=== PATIENT | female | born 1965 | race African-American/Black ===

== ENCOUNTER 2020-08-11 11:52 | Inpatient (IN) | payer OTHER ==
[~2020-08-11] VITALS: Ht 152.4 cm; Wt 47.6 kg
--- NOTE | 2020-08-11 12:05 | NUR ---
[facility] from [facility] "Poor PO intake/pancreatic CA-mets/Hypotension". vs checked. iv access started. blood draw done sent to lab
--- NOTE | 2020-08-11 12:35 | NUR ---
urine collected sent to lab
[2020-08-11] MEDS ORDERED: IV NS 0.9% 1,000 ML BAG IV ONE ×2 (13:00→16:00)
[2020-08-11 13:06] LABS: BASOPHILS # (AUTO) 0.1 /CMM (0.0-0.2); BASOPHILS % (AUTO) 0.6 % (0.0-2.0); HEMATOCRIT 34 % (33-45); HEMOGLOBIN 10.9 g/dL (11.5-14.8); LYMPHOCYTES # (AUTO) 1.9 /CMM (0.8-4.8); LYMPHOCYTES % (AUTO) 17.8 % (20.0-44.0); MEAN CORPUSCULAR HGB CONC 32 g/dl (31.0-36.0); MEAN CORPUSCULAR VOLUME 98 fL (82-100); MONOCYTES # (AUTO) 0.6 /CMM (0.1-1.30); MONOCYTES % (AUTO) 5.6 % (2.0-12.0); NEUTROPHILS # (AUTO) 8.2 /CMM (1.8-8.9); PLATELET COUNT (AUTO) 109 /CMM (150-450); RED BLOOD CELL COUNT(AUTO) 3.44 MIL/uL (4.0-5.2); WHITE BLOOD COUNT (AUTO) 10.7 K/uL (4.3-11.0)
[2020-08-11 13:17] LABS: SERUM AMMONIA 30 umol/L (11-32)
[2020-08-11 13:34] LABS: ALANINE AMINOTRANSFERASE 41 U/L (12-78); ALKALINE PHOSPHATASE 334 U/L (46-116); ASPARTATE AMINOTRANSFERASE 229 U/L (15-37); BILIRUBIN,DIRECT 6.5 mg/dL (0.0-0.2); BILIRUBIN,TOTAL 8.2 mg/dL (0.2-1.0); CALCIUM, SERUM 9.1 mg/dL (8.5-10.1); CARBON DIOXIDE 34 mmol/L (21-32); CHLORIDE 100 mmol/L (98-107); GLUCOSE 96 mg/dL (74-106); SODIUM SERUM 145 mmol/L (136-145); TOTAL PROTEIN, SERUM 6.4 g/dL (6.4-8.2); UREA NITROGEN, BLOOD 31 mg/dL (7-18)
[2020-08-11 13:38] LABS: CREATININE 1.1 mg/dL (0.6-1.3)
[2020-08-11] MEDS ORDERED: MORP30TA59 PO (13:39)
[2020-08-11] MEDS ORDERED: ACET325T53 PO (13:39)
[2020-08-11] MEDS ORDERED: FAMO20TA8 PO (13:39)
[2020-08-11] MEDS ORDERED: ONDA4TAB5 PO (13:39)
[2020-08-11] MEDS ORDERED: MEGE400O4 PO (13:39)
[2020-08-11] MEDS ORDERED: MULT-439 PO (13:39)
[2020-08-11] MEDS ORDERED: POTA20TA83 PO (13:39)
[2020-08-11] MEDS ORDERED: DICY20TA11 PO (13:39)
[2020-08-11] MEDS ORDERED: FURO-145 PO (13:39)
[2020-08-11] MEDS ORDERED: ASCO500C17 PO (13:39)
[2020-08-11] MEDS ORDERED: AMIN887L PO (13:39)
[2020-08-11] MEDS ORDERED: DRON2.5C18 PO (13:39)
[2020-08-11] MEDS ORDERED: APIX5TAB PO (13:39)
[2020-08-11] MEDS ORDERED: MAGN400O6 PO (13:39)
[2020-08-11] MEDS ORDERED: SENN-175 PO (13:39)
[2020-08-11] MEDS ORDERED: ZINC220C6 PO (13:39)
[2020-08-11] MEDS ORDERED: OXYC-128 PO (13:39)
[2020-08-11 13:40] LABS: POTASSIUM 2.6 mmol/L (3.5-5.1)
[2020-08-11] MEDS ORDERED: POTASSIUM CL. PREMIX PERIPHER. 50 ML ONE (13:50)
[2020-08-11] MEDS ORDERED: CEFTRIAXONE 1GM BAG (ER ONLY) 50 ML IV ONE ×2 (13:50→14:00)
[2020-08-11 14:06] LABS: BILIRUBIN,URINE LARGE (NEGATIVE); BLOOD, URINE SMALL Ery/uL (NEGATIVE); COLOR,URINE AMBER (YELLOW); LEUKOCYTE ESTERASE ,URINE NEGATIVE (NEGATIVE); NITRITE, URINE POSITIVE (NEGATIVE); PROTEIN,URINE TRACE mg/dl (NEGATIVE); UGLUCOSE NEGATIVE (NEGATIVE)
--- NOTE | 2020-08-11 14:10 | NUR ---
CALLED DR. COLE
[2020-08-11] MEDS: POTASSIUM CL. PREMIX PERIPHER. 50 ML IV SCH ×4 (14:19→17:44)
[2020-08-11] MEDS ORDERED: POTASSIUM CL. PREMIX PERIPHER. 150 ML ONE (14:21)
--- NOTE | 2020-08-11 14:26 | NUR ---
called erection shop supervisor for bed assignment
--- NOTE | 2020-08-11 14:26 | NUR ---
MOVE SHEET SUBMITTED AND CALLED FOR TELE BED.
--- NOTE | 2020-08-11 14:30 | NUR ---
GOT BED 106
[2020-08-11 15:08] LABS: BACTERIA,URINE 1+ /HPF (None Seen); HYALINE CASTS, URINE Few /LPF (None Seen); SQUAMOUS EPITHELIAL CELL,UR 0-2 /HPF (None Seen); WBC,URINE 0-2 /HPF (0-3)
--- NOTE | 2020-08-11 16:23 | NUR ---
repoert given to yoan at [facility]. pt will go to 106
[2020-08-11 17:00] VITALS: BP 96/55
--- NOTE | 2020-08-11 17:00 | NUR ---
pt transferred to room 106. endorsed to genoveva altamirano to hang last bag of potassium once the current bag is done infusing.
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
[2020-08-11] MEDS ORDERED: Potassium Chloride 40 MEQ in IV D5/ 0.9% NACL 1,000 ML IV PRN (18:00)
[2020-08-11] MEDS ORDERED: ACETAMINOPHEN 325 MG TABLET PO PRN (19:00)
[2020-08-11] MEDS ORDERED: MAGNESIUM HYDROXIDE 30 ML UDC PO PRN (19:00)
[2020-08-11] MEDS ORDERED: ONDANSETRON 4 MG TAB.RAPDIS PO PRN ×2 (19:00→22:00)
[2020-08-11] MEDS ORDERED: oxyCODONE/APAP (5/325 MG) 1 UDTAB TABLET PO PRN (19:00)
[2020-08-11] MEDS: Potassium Chloride 40 MEQ in IV D5/ 0.9% NACL 1,000 ML IV PRN (19:53)
[2020-08-11 20:00] VITALS: BP 80/50
--- NOTE | 2020-08-11 20:00 | NUR ---
ROBOTIC WELDING OPERATOR NOTES RECEIVED PATIENT IN BED, AOX 1, UNABLE TO MAKE NEEDS KNOWN NO SOB, NO DISTRESS, SINUS RHYTHM HR 95 ON MONITOR, NO SIGNS OF PAIN, WITH PORT A CATH, LEFT AC IV G 20 FLUSHES WELL INTACT AND PATENT . WITH IVF OF D5 1/2 NS WITH 40MEQ KCL AT 100CC/HR INFUSING WELL . V/S STABLE AFEBRILE .BODY CHECK DONE PATIENT WITH SACRAL/COCCYX WOUND PARTIAL THICKNESS, PHOTO TAKEN ON THE CHART , REGULAR DIET. CALL LIGHT WITHIN REACH.BED LOW LOCKED. SR UP X 2, WILL CONT TO MONITOR.MORPHINE MEDICATION NOT ADMINISTERED AT THIS TIME D/T LOW BP ,ALL NEEDS ATTENDED TOO , SPOKE TO NEIL THE DAUGHTER UPDATED WITH PTS CURRENT CONDITION.PTS FOR WOUND CONSULT ,TURNED AND REPOSITION HOB ELEVATED AT ALL TIMES.
[2020-08-11] MEDS ORDERED: MORPHINE SULFATE SR 30 MG TABLET.SA PO SCH (21:00)
[2020-08-12] VITALS: BP 96/73
[2020-08-12 04:00] VITALS: BP 112/55
[2020-08-12] MEDS: Potassium Chloride 40 MEQ in IV D5/ 0.9% NACL 1,000 ML IV PRN ×2 (05:51→16:08)
--- NOTE | 2020-08-12 06:18 | NUR ---
telemedicine physician notes Pts remain in bed awake alert and responsive , no sob no distress noted call light within reach on r/a sating 97 %. ivf of D5 1/2 ns at 100cc/hr infusing well ,v/s stable afebrile , will endorse to rn day shift for continuity of care.
--- NOTE | 2020-08-12 07:30 | NUR ---
RN OPENING NOTES Received patient in bed, A/Ox1, on room air, tolerating well, respirations even and unlabored, on Tele-monitor, SR 91, patient is on bed rest, R side PORT A CATH noted, and L side AC IV line, both paten and intact, Safety measures in place, call light in reach, bed is locked in lowest position, will cont to monitor t
[2020-08-12] MEDS: DICYCLOMINE HCL 10 MG CAPSULE PO SCH ×5 (07:52→21:11)
[2020-08-12 08:00] VITALS: BP 123/64
--- NOTE | 2020-08-12 08:45 | NUR ---
Patient refusing food, and spitting out Prostat
[2020-08-12] MEDS ORDERED: LACTULOSE 10 G/15 ML UDC (PYXIS) PO PRN (09:00)
[2020-08-12] MEDS ORDERED: FUROSEMIDE 20 MG TABLET PO SCH (09:00)
[2020-08-12] MEDS: ASCORBIC ACID 500 MG TABLET PO SCH (09:11)
[2020-08-12] MEDS: DRONABINOL (2.5 MG) 2.5 MG CAPSULE PO SCH ×2 (09:11→16:49)
[2020-08-12] MEDS: ZINC SULFATE 220 MG CAPSULE PO SCH (09:11)
[2020-08-12] MEDS: FAMOTIDINE (20 MG) 20 MG TABLET PO SCH ×2 (09:11→16:49)
[2020-08-12] MEDS: MEGESTROL ACETATE SUSP 400 MG/10 ML UDC PO SCH (09:11)
[2020-08-12] MEDS: MULTIVITAMINS,THERAGRAN 1 UDTAB TABLET PO SCH (09:11)
[2020-08-12] MEDS: APIXABAN 5 MG TABLET PO SCH ×2 (09:13→16:50)
[2020-08-12] MEDS: PROSTAT (PYXIS) 30 ML UDC PO SCH (09:16)
--- NOTE | 2020-08-12 09:52 | NUR ---
received phone call from ALYSSA Almaraz test positive
[2020-08-12 12:00] VITALS: BP 127/66
--- NOTE | 2020-08-12 13:11 | NUR ---
Alannah and Karina daughter contacted, gave patient phone. Per family patient's oncologist is Dr Short ([phone]) Family is concern about future treatment with chemo and future discharge from REHAB
[2020-08-12] MEDS: ENSURE ENLIVE CHOC 237 ML CAN PO SCH ×2 (14:12→17:00)
--- NOTE | 2020-08-12 14:34 | NUR ---
Patient is refusing to eat lunch, attempt x3,was able to drink half bottle of Ensure, will follow up
[2020-08-12 16:00] VITALS: BP 120/66
--- NOTE | 2020-08-12 16:23 | NUR ---
Refused lab blood draw x3
[2020-08-12] MEDS: POTASSIUM CHLORIDE 20 MEQ TAB.PRT.SR PO SCH ×2 (19:00→19:01)
--- NOTE | 2020-08-12 19:04 | NUR ---
Patient spit out medications, refusing to chiki, unable to provide education due mental status
--- NOTE | 2020-08-12 19:27 | NUR ---
RN CLOSING NOTES Patient remains in bed , A/Ox1, on room air, tolerating well, respirations even and unlabored, on Tele-monitor, SR 88, comfort needs attended, mediations given, Safety measures in place, call light in reach, bed is locked in lowest position, will endorse to PM shift RN for ALICJA
[2020-08-12 20:00] VITALS: BP_SYST 100; BP_SYST 107; BP_DIAS 60
--- NOTE | 2020-08-12 20:00 | NUR ---
RN OPENING NOTES RECEIVED PATIENT IN BED, AWAKE AND RESPONSIVE. A/O X1. ON ROOM AIR, TOLERATING WELL 02 SAT 95%. NO SOB OR ANY RESPIRATORY DISTRESS. ON EXTERNAL MONITOR, ST 110. WITH RIGHT SIDE PERMACATH AND LEFT AC #20, BOTH INTACT AND NO S/S OF INFECTION. BED LOCKED AND IN LOWEST POSITION. SIDE RAILS UPX2. ALL SAFETY MEASURES IMPLEMENTED. CALL LIGHT WITHIN REACH. WILL CONTINUE TO MONITOR. Addendum: 08/13/20 at 0249 by ANTHONY BOWLING RN PATIENT HAS RIGHT PORTACATH. DOES NOT HAVE RIGHT PERMACATH.
[2020-08-12] MEDS: MORPHINE SULFATE SR 15 MG TABLET.SA PO SCH ×3 (20:59→21:07)
[2020-08-12] MEDS: SENNOSIDES 8.6 MG TABLET PO SCH ×2 (21:11)
[2020-08-13] VITALS: BP 95/56
[2020-08-13 04:00] VITALS: BP 94/60
[2020-08-13] MEDS: Potassium Chloride 40 MEQ in IV D5/ 0.9% NACL 1,000 ML IV PRN ×2 (04:02→12:11)
--- NOTE | 2020-08-13 07:26 | NUR ---
DR. COLE NOTIFIED REGARDING NEEDLE STICK W/ LAB,OBTAINED ORDERS TO DO BLOOD DRAW.NURSING SUP MADE AWARE.
[2020-08-13] MEDS: DICYCLOMINE HCL 10 MG CAPSULE PO SCH ×4 (07:30→22:33)
--- NOTE | 2020-08-13 07:33 | NUR ---
RN CLOSING NOTES PATIENT A/O X1. ON ROOM AIR, TOLERATING WELL 02 SAT 94%. NO SOB OR ANY RESPIRATORY DISTRESS. ON EXTERNAL MONITOR, 80. WITH RIGHT SIDE PORTACATH AND LEFT AC #20, BOTH INTACT AND NO S/S OF INFECTION. ON DROPLET ISOLATION, PRECAUTIONS OBSERVED. NO SIGNIFICANT CHANGES DURING SHIFT. BED LOCKED AND IN LOWEST POSITION. SIDE RAILS UPX2. ALL SAFETY MEASURES IMPLEMENTED. CALL LIGHT WITHIN REACH. ENDORSED TO ONCOMING NURSE.
--- NOTE | 2020-08-13 07:33 | NUR ---
RN NOTES RECEIVED PATIENT IN BED RESTING COMFORTABLY IN MODERATE HIGH BACK REST. A/O X1. ON ROOM AIR, TOLERATING WELL. NO SOB OR ANY RESPIRATORY DISTRESS NOTED AT THIS TIME. WITH RIGHT SIDE PORTACATH AND LEFT AC #20, INTACT AND PATENT. SAFETY MEASURES IN PLACE, BED LOCKED AND IN LOWEST POSITION. SIDE RAILS UPX2. CALL LIGHT WITHIN REACH. WILL CONTINUE TO MONITOR.
[2020-08-13 08:00] VITALS: BP 123/59
--- NOTE | 2020-08-13 08:30 | NUR ---
RN NOTES CALLED [facility] NOT [facility]AILABLE ON OMNICEL AND CASSET,PER PHARMACIST THEY WILL DELIVER. WILL F/U.
[2020-08-13] MEDS: DRONABINOL (2.5 MG) 2.5 MG CAPSULE PO SCH ×3 (08:39→16:19)
[2020-08-13] MEDS: MULTIVITAMINS,THERAGRAN 1 UDTAB TABLET PO SCH ×2 (08:40→09:00)
[2020-08-13] MEDS: MEGESTROL ACETATE SUSP 400 MG/10 ML UDC PO SCH ×2 (08:40→09:00)
[2020-08-13] MEDS: FAMOTIDINE (20 MG) 20 MG TABLET PO SCH ×3 (08:40→16:19)
[2020-08-13] MEDS: ASCORBIC ACID 500 MG TABLET PO SCH ×2 (08:40→09:00)
[2020-08-13] MEDS: ZINC SULFATE 220 MG CAPSULE PO SCH ×2 (08:40→09:00)
[2020-08-13] MEDS: MORPHINE SULFATE SR 15 MG TABLET.SA PO SCH ×3 (08:47→21:00)
[2020-08-13] MEDS: ENSURE ENLIVE CHOC 237 ML CAN PO SCH ×3 (08:49→16:23)
[2020-08-13] MEDS: APIXABAN 5 MG TABLET PO SCH ×3 (09:00→16:23)
[2020-08-13] MEDS: PROSTAT (PYXIS) 30 ML UDC PO SCH (09:14)
--- NOTE | 2020-08-13 09:24 | NUR ---
RN NOTES AM MEDICATION WASTED, PATIENT SPIT OUT ALL MEDICATION, EXPLAINED RISKS AND BENEFITS. VERBALIZED UNDERSTANDING AND REFUSED MEDICATION. WILL CONTINUE TO MONITOR.
[2020-08-13 12:00] VITALS: BP 131/80
[2020-08-13 16:00] VITALS: BP 111/65
--- NOTE | 2020-08-13 16:17 | NUR ---
DR. COLE NOTIFIED PATIENT REFUSING BLOOD DRAW TRIED 3X ALREADY PER LAB.
--- NOTE | 2020-08-13 16:44 | NUR ---
MEGHAN RAMIREZ PLACED MIDLINE AND OBTAINED BLOOD SPECIMEN AND SEND TO LAB.
[2020-08-13 16:49] LABS: BASOPHILS % (AUTO) 0.3 % (0.0-2.0); EOSINOPHILS % (AUTO) 0.1 % (0.0-6.0); HEMATOCRIT 33 % (33-45); HEMOGLOBIN 10.4 g/dL (11.5-14.8); LYMPHOCYTES # (AUTO) 1.5 /CMM (0.8-4.8); LYMPHOCYTES % (AUTO) 12.1 % (20.0-44.0); MEAN CORPUSCULAR HGB CONC 32 g/dl (31.0-36.0); MEAN CORPUSCULAR VOLUME 101 fL (82-100); MONOCYTES # (AUTO) 0.5 /CMM (0.1-1.30); MONOCYTES % (AUTO) 3.9 % (2.0-12.0); NEUTROPHILS % (AUTO) 83.6 % (43.0-81.0); PLATELET COUNT (AUTO) 77 /CMM (150-450); RED BLOOD CELL COUNT(AUTO) 3.25 MIL/uL (4.0-5.2); WHITE BLOOD COUNT (AUTO) 11.9 K/uL (4.3-11.0)
[2020-08-13] MEDS: POTASSIUM CHLORIDE 20 MEQ TAB.PRT.SR PO SCH (17:00)
[2020-08-13 17:08] LABS: LYMPHOCYTES % (MANUAL) 9 % (16-48); MONOCYTES % (MANUAL) 3 % (0-11.0); NEUTROPHILS % (MANUAL) 88 (42-76)
[2020-08-13 17:17] LABS: CALCIUM, SERUM 8.5 mg/dL (8.5-10.1); CREATININE 1.1 mg/dL (0.6-1.3); MAGNESIUM 2.1 mg/dL (1.8-2.4); PHOSPHORUS 1.2 mg/dL (2.5-4.9); POTASSIUM 5.6 mmol/L (3.5-5.1)
--- NOTE | 2020-08-13 17:40 | NUR ---
RN NOTES DR. COLE ORDER TO CHAGE IVF TO D5W 100CC/HR AND NEUTRAPHOS 2 PACKETS PO ONE TIME. ORDERS MADE AND CARRIED OUT. WILL CONTINUE TO MONITOR.
--- NOTE | 2020-08-13 17:49 | NUR ---
dr. dalton notified patient s/p fall with new ordersleft and carried out.CT HEAD DONE AWAITS RESULT.
--- NOTE | 2020-08-13 17:50 | NUR ---
RN NOTES PATIENT WAS FOUND BY BUILDING CARPENTER HELPER ON THE FLOOR, PATIENT WAS ASSESSED, NO BRUISING OR BLEEDING NOTED, NO COMPLAIN OF PAIN, PER PATIENT SHE HIT HER HEAD. MD NOTIFIED WITH ORDERS TO DO CT HEAD WITHOUT CONTRAST. PATIENT WAS TRANSFERRED TO THE BED, BED IN LOWEST LOCKED POSITION WITH SIDE RAILS UP X4. CALL LIGHT WITHIN PATIENT REACH. WILL CONTINUE TO MONITOR.
--- NOTE | 2020-08-13 17:51 | NUR ---
NURSING SUP. QUANG MADE AWARE SITTER REQUEST REGARDING FALL.PLACED PATIENT ON NEW BED W/ ISOFLEX .DISCONTINUED AIRMATTRESS ORDERED,4X SIDERAILS UP AND BEDALARM ON.
--- NOTE | 2020-08-13 17:53 | NUR ---
DR. COLE NOTIFIED REGARDING SITTER ISSUE R/T COVID PER NURSING SUP PER KEEP SIDERAILS X4 REITERATED WILL BE FORM OF RESTRAINT AND PER DR. COLE HE IS OK WITH THAT WANT RN TO PLACE ORDER .
--- NOTE | 2020-08-13 17:53 | NUR ---
[facility] NURSING SUP CANNOT PROVIDE SITTER R/T COVID STATUS.
--- NOTE | 2020-08-13 17:58 | NUR ---
DAUGHTER NEIL NULL NOTIFIED REGARDING INCIDENT LEFT MESSAGE ON PHONE,AWAITS RETURN CALL.
[2020-08-13] MEDS ORDERED: NEUTRA PHOS 1 POWD.PACKET PO ONE (18:00)
--- NOTE | 2020-08-13 18:13 | NUR ---
AIR MATTRESS DICONTINUED PER MD,PLACED ON REGULAR BED W/ ISOFLEX.
[2020-08-13] MEDS: IV D5W 1,000 ML IV PRN (18:18)
--- NOTE | 2020-08-13 18:25 | NUR ---
CT HEAD RESULT RELAYED TO DR. COLE NO NEW ORDERS.
--- NOTE | 2020-08-13 18:33 | NUR ---
RN NOTES PATIENT IN BED RESTING COMFORTABLY IN MODERATE HIGH BACK REST. A/O X2. ON ROOM AIR, TOLERATING WELL. NO SOB OR ANY RESPIRATORY DISTRESS NOTED. WITH RIGHT SIDE PORTACATH AND LEFT AC #20, INTACT AND PATENT. S/P FALL, NEURO CHECK DONE, NO COMPLAIN OF PAIN OR DISCOMFORT. CT HEAD RELAYED TO DR. COLE, CALLED FAMILY, NO ANSWER BUT LEFT MESSAGE, WILL ENDORSE TO AVIATION MANAGER FOR FOLLOW UP. SAFETY MEASURES IN PLACE, BED LOCKED AND IN LOWEST POSITION. SIDE RAILS UPX4. CALL LIGHT WITHIN REACH. WILL ENDORSE FOR ALICJA.
--- NOTE | 2020-08-13 18:45 | NUR ---
RN NOTES SPOKE TO PHARMACY, PER PHARMACIST TO CLARIFY ORDER OF D5W FLUIDS FROM DR. COLE, GLUCOSE OF 130. MD MADE AWARE, AWAITING FOR CALL BACK. ENDORSE TO SALES SUPPORT ENGINEER NURSE.
--- NOTE | 2020-08-13 19:28 | NUR ---
BED ALARM WAS ON BUT BY THE TIME THE STAFFING RN GO INSIDE THE ROOM, PATIENT IS ALREADY ON THE FLOOR. Addendum: 08/13/20 at 0 by ANDREW PAZ RN ADDTIONAL NOTE TO THE NOTES ON 1749.
--- NOTE | 2020-08-13 19:40 | NUR ---
RN OPENING NOTES PATIENT IN BED RESTING WITH HOB ELEVATED. A/O X2. ON ROOM AIR, TOLERATING WELL O2 SAT 94%. NO SOB OR ANY RESPIRATORY DISTRESS NOTED. WITH RIGHT SIDE PORTACATH AND LEFT AC #20, INTACT AND PATENT. DR. COLE AWARE OF PHARMACY RECOMMENDATION FOR ORDER OF D5W FLUIDS AND PATIENT'S GLUCOSE 130, WITH NO NEW ORDERS AT THIS TIME. SAFETY MEASURES IN PLACE, BED LOCKED AND IN LOWEST POSITION. SIDE RAILS UPX4. CALL LIGHT WITHIN REACH. WILL CONTINUE TO MONITOR.
[2020-08-13 20:00] VITALS: BP 104/77
--- NOTE | 2020-08-13 20:35 | NUR ---
2034 PATIENT'S DAUGHTER NEIL CALLED VERY UPSET ABOUT THE FALL INCIDENT DURING MORNING SHIFT BECAUSE SHE SAID SHE WAS NOT NOTIFIED. TRIED TO EXPLAIN TO HER WHAT HAPPENED BUT SHE DECLINED AND JUST ASKED TO SPEAK TO PATIENT. CALLED TRANSFERRED TO PATIENT'S ROOM, BRIAN GALEANA WITH PATIENT FOR ASSISTANCE WITH THE PHONE.
--- NOTE | 2020-08-13 21:50 | NUR ---
2150 BEDBATH PROVIDED, LINENS CHANGED, DRESSING ON COCCYX WOUND CHANGED. PATIENT ABLE TO TOLERATE PROCEDURE WELL. CONT TO DENY PAIN WHEN ASKED. NO SIGNS OF RESPIRATORY DISTRESS NOTED. O2 SATURATION 98% ON 2L. TURNED TO HER SIDE. HOB KEPT ELEVATED FOR MAXIMUM OXYGENATION. RAILS UP AND BED ALARM ON FOR SAFETY. CALL LIGHT PLACED WITHIN REACH AND INSTRUCTED PATIENT TO CALL FOR ASSIST.
--- NOTE | 2020-08-13 22:15 | NUR ---
DAUGHTER SAW CALLED AT THIS TIME AND UPDATED HER ON PATIENT'S INCIDENT THIS MORNING AND PATIENT'S CURRENT STATUS. ASSISTED PHONE CALL WITH PATIENT. RETRIEVED VERBAL CONSENT VIA TELEPHONE FROM SAW MCKEON FOR HIV CONSENT. SAW ALSO REQUESTED FOR PEG PLACEMENT AND POSSIBLE TRANSFER TO A DIFFERENT HOSPITAL. CHARGE NURSE NOTIFIED. WILL ENDORSE TO MORNING SHIFT.
[2020-08-13] MEDS: SENNOSIDES 8.6 MG TABLET PO SCH (22:33)
[2020-08-14] VITALS: BP 102/68
[2020-08-14 04:00] VITALS: BP 96/77
[2020-08-14 06:11] LABS: BASOPHILS # (AUTO) 0.1 /CMM (0.0-0.2); BASOPHILS % (AUTO) 0.5 % (0.0-2.0); EOSINOPHILS % (AUTO) 0.1 % (0.0-6.0); HEMATOCRIT 32 % (33-45); HEMOGLOBIN 9.9 g/dL (11.5-14.8); LYMPHOCYTES # (AUTO) 1.5 /CMM (0.8-4.8); LYMPHOCYTES % (AUTO) 11.9 % (20.0-44.0); MEAN CORPUSCULAR HGB CONC 32 g/dl (31.0-36.0); MEAN CORPUSCULAR VOLUME 102 fL (82-100); MONOCYTES # (AUTO) 0.4 /CMM (0.1-1.30); MONOCYTES % (AUTO) 3.1 % (2.0-12.0); NEUTROPHILS # (AUTO) 10.8 /CMM (1.8-8.9); NEUTROPHILS % (AUTO) 84.4 % (43.0-81.0); PLATELET COUNT (AUTO) 55 /CMM (150-450); RED BLOOD CELL COUNT(AUTO) 3.09 MIL/uL (4.0-5.2); WHITE BLOOD COUNT (AUTO) 12.8 K/uL (4.3-11.0)
[2020-08-14 06:32] LABS: CALCIUM, SERUM 8.9 mg/dL (8.5-10.1); CREATININE 0.9 mg/dL (0.6-1.3); MAGNESIUM 2.1 mg/dL (1.8-2.4); POTASSIUM 5.1 mmol/L (3.5-5.1)
[2020-08-14] MEDS: IV D5W 1,000 ML IV PRN (06:35)
--- NOTE | 2020-08-14 06:49 | NUR ---
RN CLOSING NOTE PATIENT IN BED RESTING WITH HOB ELEVATED. A/O X2. ON O2 2LPM VIA NC, O2 SAT 98%. NO SOB OR ANY RESPIRATORY DISTRESS NOTED. WITH RIGHT SIDE PORTACATH AND LEFT AC #20 AND HERMES MIDLINE, INTACT AND PATENT. SAFETY MEASURES IN PLACE, BED LOCKED AND IN LOWEST POSITION. SIDE RAILS UPX4. CALL LIGHT WITHIN REACH. WILL CONTINUE TO MONITOR.
--- NOTE | 2020-08-14 07:10 | NUR ---
PATIENT IN BED RESTING WITH HOB ELEVATED. A/O X2. ON O2 2LPM VIA NC, O2 SAT 98%. NO SOB OR ANY RESPIRATORY DISTRESS NOTED AND PT DENIES PAIN. SKIN WARM FLUSHED. JAUNDICE NOTED. WITH RIGHT SIDE PORTACATH AND LEFT AC #20 AND HERMES MIDLINE, INTACT AND PATENT. ST 110S ON TELE. SAFETY MEASURES IN PLACE, BED LOCKED AND IN LOWEST POSITION. SIDE RAILS UPX4. CALL LIGHT WITHIN REACH. WILL CONTINUE TO MONITOR ORIENTATION, VS, HR, AND LABS. WILL REPORT NEEDED TO .
[2020-08-14 08:00] VITALS: BP 101/72
[2020-08-14] MEDS: ZINC SULFATE 220 MG CAPSULE PO SCH (08:33)
[2020-08-14] MEDS: APIXABAN 5 MG TABLET PO SCH ×2 (08:33→16:52)
[2020-08-14] MEDS: DICYCLOMINE HCL 10 MG CAPSULE PO SCH ×4 (08:33→21:07)
[2020-08-14] MEDS: DRONABINOL (2.5 MG) 2.5 MG CAPSULE PO SCH ×2 (08:33→16:52)
[2020-08-14] MEDS: MEGESTROL ACETATE SUSP 400 MG/10 ML UDC PO SCH (08:33)
[2020-08-14] MEDS: MULTIVITAMINS,THERAGRAN 1 UDTAB TABLET PO SCH (08:33)
[2020-08-14] MEDS: ASCORBIC ACID 500 MG TABLET PO SCH (08:33)
[2020-08-14] MEDS: FAMOTIDINE (20 MG) 20 MG TABLET PO SCH ×2 (08:33→16:52)
[2020-08-14] MEDS: ENSURE ENLIVE CHOC 237 ML CAN PO SCH ×3 (08:34→17:00)
[2020-08-14] MEDS: MORPHINE SULFATE SR 15 MG TABLET.SA PO SCH ×2 (08:35→21:07)
--- NOTE | 2020-08-14 08:35 | NUR ---
ORDERED ELIQUIS AND MORPHINE NON ADMINISTERED. LOW PLATELETS AT 55 TODAY. TRENDING DOWN FROM 109 ON 08/12 AND 77 08/13. MD MADE AWARE. MORPHINE NON ADMINISTERED. BP 101/72. PT IN NO SIGNS OF PAIN. DENIES PAIN.
[2020-08-14] MEDS: PROSTAT (PYXIS) 30 ML UDC PO SCH (09:00)
[2020-08-14] MEDS ORDERED: NEUTRA PHOS 1 POWD.PACKET PO ONE (09:30)
--- NOTE | 2020-08-14 09:46 | NUR ---
PT REFUSING ORDERED NEUTRA PHOS AND PROSTAT. EDUCATED PATIENT ON PURPOSE AND BENEFIT. PT REFSUSES AND REMAINS ONCOOPERATIVE. ATTEMPTED TO PROVIDE MEDS WITH APPLE SAUCE AND CHOCOLATE PUDDING. NO SUCCESS. PT REMAINED UNCOOPERATIVE. WILL INFORM MD AND FAMILY.
--- NOTE | 2020-08-14 10:51 | NUR ---
PATIENT IN BED RESTING WITH HOB ELEVATED. A/O X2. ON O2 2LPM VIA NC, O2 SAT 98%. NO SOB OR ANY RESPIRATORY DISTRESS NOTED AND PT DENIES PAIN. SKIN WARM FLUSHED. JAUNDICE NOTED. WITH RIGHT SIDE PORTACATH AND LEFT AC #20 AND HERMES MIDLINE, INTACT AND PATENT. ST 110S ON TELE. SAFETY MEASURES IN PLACE, BED LOCKED AND IN LOWEST POSITION. SIDE RAILS UPX4. CALL LIGHT WITHIN REACH. WILL CONTINUE TO MONITOR ORIENTATION, VS, HR, AND LABS. WILL REPORT NEEDED TO MD. Addendum: 08/14/20 at 1054 by RUBIN THURSTON RN WRONG TIME REFER TO 0710 NOTE
[2020-08-14 11:48] LABS: LYMPHOCYTES % (MANUAL) 6 % (16-48); MONOCYTES % (MANUAL) 4 % (0-11.0); NEUTROPHILS % (MANUAL) 90 (42-76)
--- NOTE | 2020-08-14 11:55 | NUR ---
WOUND CARE CONSULT: REVIEWED CHART, NURSING DOCUMENTATION AND PHOTOS WHICH INDICATE FULL THICKNESS TO SACRAL AREA EXTENDING TO BUTTOCKS, PRESENT ON ADMISSION. RECOMMEND SURGICAL CONSULT. DR BONILLA NOTIFIED OF CONSULT REQUEST. RECOMMENDATIONS MADE FOR SKIN PROTECTION. DISCUSSED WITH NURSING STAFF. PT IS ON REE HEIGHTS ISOFLEX LOW AIRLOSS BED. MD IN AGREEMENT WITH PLAN OF CARE.
[2020-08-14 12:00] VITALS: BP 105/69
[2020-08-14] MEDS ORDERED: Z GUARD REMEDY 2 OZ OINT TP PRN (12:00)
[2020-08-14] MEDS: Z GUARD REMEDY 2 OZ OINT TP SCH (12:49)
[2020-08-14 16:00] VITALS: BP 116/92
[2020-08-14] MEDS: POTASSIUM CHLORIDE 20 MEQ TAB.PRT.SR PO SCH (17:01)
--- NOTE | 2020-08-14 17:02 | NUR ---
ORDERED Laura FARMER HELD K 5.1 TODAY. NOTIFIED. CORTES HELD TODAY PLATELETS 55. NOTIFIED.
--- NOTE | 2020-08-14 17:21 | NUR ---
PT REFUSING TO DRINK ORDERED ENSURE. EDUCATED PATIENT ON BENEFIT AND PURPOSE. PT INSISTED ON REFUSING AND WAS UNCOOPERATIVE. FAMILY AND MD AWARE.
--- NOTE | 2020-08-14 19:23 | NUR ---
PATIENT IN BED RESTING WITH HOB ELEVATED. A/O X2. ON O2 2LPM VIA NC, O2 SAT 98%. NO SOB OR ANY RESPIRATORY DISTRESS NOTED AND PT DENIES PAIN. SKIN WARM FLUSHED. JAUNDICE NOTED. WITH RIGHT SIDE PORTACATH AND LEFT AC #20 AND HERMES MIDLINE, INTACT AND PATENT. ST 110S ON TELE. SAFETY MEASURES IN PLACE, BED LOCKED AND IN LOWEST POSITION. SIDE RAILS UPX4. CALL LIGHT WITHIN REACH. MONITORED ORIENTATION, VS, HR, AND LABS. REPORTED NEEDED TO MD. FAMILY AND MD AWARE OF PATIENT UNCOOPERATION WITH MEALS AND MEDICATION. WILL ENDORSE TO PM RN.
[2020-08-14 20:00] VITALS: BP 103/71
--- NOTE | 2020-08-14 20:00 | NUR ---
telecom billing analyst note pt in bed. a/o x2. Breathing even and unlabored with no sob or acute distress noted in 2lpm of o2 via nc. Denies any pain or discomfort. HERMES midline patent and intact. IV fluids infusing well. All needs rendered. Kept clean and dry. Call light within reach. Bed in lowest position. Will continue to monitor.
[2020-08-14] MEDS: MEROPENEM 500 MG in IV NS 0.9% 50 ML IV SCH (20:40)
[2020-08-14] MEDS: SENNOSIDES 8.6 MG TABLET PO SCH (21:07)
[2020-08-15] VITALS: BP 93/72
[2020-08-15] MEDS: DAKINS QUARTER STRENGTH (0.125%) 480 ML BOTTLE TOP SCH ×2 (00:16→12:23)
--- NOTE | 2020-08-15 01:23 | NUR ---
charly altamirano note restraint discontinued due to pt does not require any restraints. No episodes of pulling tubings noted.noted and carried out. Addendum: 08/15/20 at 0128 by ZI PATEL RN clarification charly altamirano note restraint discontinued due to pt does not require any restraints. No episodes of pulling tubings nor compliance with safety instructions. noted and carried out.
[2020-08-15 02:11] LABS: HIV SCRN 4G wRFX Non Reactive (Non Reactive)
[2020-08-15 04:00] VITALS: BP 122/58
[2020-08-15] MEDS: MEROPENEM 500 MG in IV NS 0.9% 50 ML IV SCH ×3 (04:00→21:03)
--- NOTE | 2020-08-15 07:10 | NUR ---
health promotion coordinator closing note. pt in bed. awake a/o x1. Breathing even and unlabored with no sob or acute distress note in 2lpm of 02 via nc. Denies any pain or discomfort. Right upper arm midline patent and intact. left ac iv site patent and intact. IV fluids infusing well. All needs rendered. Repositioned q2h. Kept clean and dry. Call light within reach. Will endorse to am nurse for continuity of care.
[2020-08-15] MEDS: DICYCLOMINE HCL 10 MG CAPSULE PO SCH ×5 (07:30→21:04)
[2020-08-15 08:00] VITALS: BP 89/65
--- NOTE | 2020-08-15 08:24 | NUR ---
PT RECEIVED IN BED, AO X 1, O2 SATURATION 95% 3 L NC. PT REGULAR DIET, FED WITH ASSISTANCE BREAKFAST 20%. PREVIOUS RN REPORTS PT DID NOT TOUCH FOOD, BUT UNCLEAR IF PT PREVIOUSLY HAD FEEDING ASSISTANCE. PT BEDBOUND WITH SACRAL WOUND, PT HAS HERMES MIDLINE, INTACT AND FLIUSHED WELL. NO SIGNS OF INFECTION OR INFILTRATION. PT TO HAVE MRI NO CONTRAST THIS AM
[2020-08-15] MEDS: MEGESTROL ACETATE SUSP 400 MG/10 ML UDC PO SCH (09:00)
[2020-08-15] MEDS: APIXABAN 5 MG TABLET PO SCH ×2 (09:00→17:00)
[2020-08-15] MEDS: PROSTAT (PYXIS) 30 ML UDC PO SCH (09:00)
[2020-08-15] MEDS: MORPHINE SULFATE SR 15 MG TABLET.SA PO SCH ×2 (09:00→21:00)
[2020-08-15] MEDS: ASCORBIC ACID 500 MG TABLET PO SCH (09:00)
[2020-08-15] MEDS: FAMOTIDINE (20 MG) 20 MG TABLET PO SCH (09:00)
[2020-08-15] MEDS: MULTIVITAMINS,THERAGRAN 1 UDTAB TABLET PO SCH (09:00)
[2020-08-15] MEDS: DRONABINOL (2.5 MG) 2.5 MG CAPSULE PO SCH ×2 (09:52→17:00)
[2020-08-15] MEDS: ZINC SULFATE 220 MG CAPSULE PO SCH (09:52)
[2020-08-15] MEDS: ENSURE ENLIVE CHOC 237 ML CAN PO SCH ×3 (09:53→17:00)
--- NOTE | 2020-08-15 10:21 | NUR ---
DR. COLE NOTIFIED REGARDING PATIENT REQUEST FOR PEG ,PER DR. COLE PT. ON MEGACE AND HE WILL FOLLOW UP.
--- NOTE | 2020-08-15 10:26 | NUR ---
PT ABLE TO TAKE PO ZINCATE AND MARINOL, THEN PROCEEDED TO REFUSE ALL OTHER PO MEDS, INCLUDING MEGACE. PT ABLE TO CONSUME ENSURE DRINK NO PROBLEMS. PROSTAT NOT AVAILABLE ON UNIT, AWAITING DIETARY TO DELIVER
--- NOTE | 2020-08-15 10:27 | NUR ---
PT FAMILY NOTIFIED OF MRI WITH AND WITHOUT CONTRAST. PT FAMILY STATES NO KNOWN METAL ON PT BODY
[2020-08-15] MEDS ORDERED: LORAZEPAM INJ 2 MG/ML VIAL IV ONE (11:00)
[2020-08-15 12:00] VITALS: BP 103/71
[2020-08-15] MEDS: Z GUARD REMEDY 2 OZ OINT TP SCH (12:24)
[2020-08-15 12:39] LABS: BASOPHILS % (AUTO) 0.2 % (0.0-2.0); EOSINOPHILS % (AUTO) 0.1 % (0.0-6.0); HEMATOCRIT 32 % (33-45); HEMOGLOBIN 10.2 g/dL (11.5-14.8); LYMPHOCYTES # (AUTO) 1.3 /CMM (0.8-4.8); LYMPHOCYTES % (AUTO) 11.7 % (20.0-44.0); MEAN CORPUSCULAR HGB CONC 32 g/dl (31.0-36.0); MEAN CORPUSCULAR VOLUME 102 fL (82-100); MONOCYTES # (AUTO) 0.4 /CMM (0.1-1.30); MONOCYTES % (AUTO) 3.9 % (2.0-12.0); NEUTROPHILS # (AUTO) 9.6 /CMM (1.8-8.9); NEUTROPHILS % (AUTO) 84.1 % (43.0-81.0); PLATELET COUNT (AUTO) 53 /CMM (150-450); RED BLOOD CELL COUNT(AUTO) 3.16 MIL/uL (4.0-5.2); WHITE BLOOD COUNT (AUTO) 11.4 K/uL (4.3-11.0)
--- NOTE | 2020-08-15 12:40 | NUR ---
PT BACK FROM MRI, BP 103/71, PULSE 86, O2 SAT 91. NC INCREASED TO 4L, O2 SAT 99%. NO RESPIRATORY DISTRESS OR SOB. PT RECEIVED 0.5 MG ATIVAN PRIOR TO MRI PER MD COLE ORDER. PT ABLE TO BE AROUSED TO VERBAL STIMULI, BUT LETHARGIC, RN UNABLE TO ADMIN ORDERED PROSTAT OR ENSURE.
[2020-08-15 13:00] LABS: CALCIUM, SERUM 8.8 mg/dL (8.5-10.1); MAGNESIUM 2.1 mg/dL (1.8-2.4); PHOSPHORUS 2.8 mg/dL (2.5-4.9); POTASSIUM 4.6 mmol/L (3.5-5.1)
[2020-08-15 13:08] LABS: ALBUMIN 1.8 g/dL (3.4-5.0); BILIRUBIN,DIRECT 7.8 mg/dL (0.0-0.2); BILIRUBIN,TOTAL 8.6 mg/dL (0.2-1.0); TOTAL PROTEIN, SERUM 5.9 g/dL (6.4-8.2)
--- NOTE | 2020-08-15 13:28 | NUR ---
mri result relaayed to dr. vinson.
--- NOTE | 2020-08-15 13:51 | NUR ---
dr. boone and dr. dalton notified patient platelet dropping and didnot take her eliquis r/t patient unable to swallow pills per nursing,awaits order.
[2020-08-15 14:26] LABS: LYMPHOCYTES % (MANUAL) 10 % (16-48); NEUTROPHILS % (MANUAL) 89 (42-76)
[2020-08-15 14:27] LABS: MONOCYTES % (MANUAL) 1 % (0-11.0)
[2020-08-15 16:00] VITALS: BP 91/65
[2020-08-15] MEDS ORDERED: PANTOPRAZOLE 40 MG VIAL IV SCH (16:00)
[2020-08-15] MEDS ORDERED: ASPIRIN 300 MG/SUPP.RECT RC SCH (16:00)
[2020-08-15] MEDS ORDERED: ASPIRIN 81 MG TAB.CHEW PO SCH (16:00)
--- NOTE | 2020-08-15 16:14 | NUR ---
DR. HARRIS AND DR. COLE NOTIFIED PT. ALTERED AND FAILED NURSING SWALLOW SCREEN,NEW ORDERS OBTAINED,WILL KEEEP NPO AND CHAGE ASA RECTALLY STEVEN AWARE PLT LOW.PHARMACIST MADE AWARE.
--- NOTE | 2020-08-15 16:21 | NUR ---
DR. HARRIS ASKING ABOUT HEMATOLOGY CONSULT BUT PER DR. COLE NOT YET.
--- NOTE | 2020-08-15 17:29 | NUR ---
PO MEDS ELIQUIS AND ENSURE DRINK NON-ADMIN. PT NPO, PLATELETS 55
--- NOTE | 2020-08-15 17:29 | NUR ---
PER DARRELL MURPHY TO ORDER 300 MG RECTAL ASPIRIN
[2020-08-15] MEDS: ASPIRIN 300 MG/SUPP.RECT RC SCH (17:30)
[2020-08-15] MEDS: POTASSIUM CHLORIDE 20 MEQ TAB.PRT.SR PO SCH (18:00)
--- NOTE | 2020-08-15 18:47 | NUR ---
RECTAL ASA 300 MG SUPP NOT GIVEN, PLATELETS 55, POTASSIUM NOT GIVEN, PT NPO
--- NOTE | 2020-08-15 19:39 | NUR ---
PT REMAINS AOX1, O2 SATURATION ON 4L 98%, NO RESPIRATORY DISTRESS OR SOB. PT NOW NPO PENDING ST EVAL. PT DRANK APPROXIMATELY 75% OF ENSURE DRINKS TODAY PRIOR TO NPO. PT NO URINE OUTPUT, ONE BM TODAY. PT WOUND TX COMPLETED DIRECTED. PT IN BED LOCKED LOWEST POSITION, CALL LIGHT WITHIN REACH. ALL SAFETY MEASURES IN PLACE. REPORT GIVEN TO ZI TORRES FOR ALICJA.
[2020-08-15 20:00] VITALS: BP 123/65
--- NOTE | 2020-08-15 20:00 | NUR ---
electrical journeyman opening note Received pt in bed. awake a/o x1 .Breathing even and unlabored in 4lpm of 02 via nc. No signs of pain or discomfort. gladis midline noted patent and intact. IV fluids infusing well. Kept clean and dry. Repositioned. Bed in lowest position. Call light within reach.Will continue to monitor.
[2020-08-15] MEDS: FAMOTIDINE/PF INJ 20 MG/2 ML VIAL IV SCH (21:03)
[2020-08-15] MEDS: SENNOSIDES 8.6 MG TABLET PO SCH (21:04)
[2020-08-16] VITALS: BP 113/81
[2020-08-16] MEDS: IV D5W 1,000 ML IV PRN ×2 (02:45→19:23)
[2020-08-16 04:00] VITALS: BP 90/60
[2020-08-16] MEDS: MEROPENEM 500 MG in IV NS 0.9% 50 ML IV SCH (04:35)
--- NOTE | 2020-08-16 06:50 | NUR ---
estate attorney closing note Patient in bed, sleeping but easily arousable. A/0 x1. Breathing even and unlabored with no sob or acute distress noted in 6lpm. O2 saturation at 94%. No s/s of pain or discomfort. HERMES midline patent and intact. IV fluids infusing well. Urine output x2. moderately soaked diaper. x1 bm medium size. All needs rendered. Repositioned q2. Call light within reach. Srx2 up. Bed in lowest position. Will endorse to am nurse for continuity of care.
[2020-08-16 06:54] LABS: BASOPHILS % (AUTO) 0.2 % (0.0-2.0); EOSINOPHILS % (AUTO) 0.1 % (0.0-6.0); HEMATOCRIT 30 % (33-45); HEMOGLOBIN 9.7 g/dL (11.5-14.8); LYMPHOCYTES # (AUTO) 1.7 /CMM (0.8-4.8); LYMPHOCYTES % (AUTO) 17.4 % (20.0-44.0); MEAN CORPUSCULAR HGB CONC 32 g/dl (31.0-36.0); MEAN CORPUSCULAR VOLUME 100 fL (82-100); MONOCYTES # (AUTO) 0.5 /CMM (0.1-1.30); MONOCYTES % (AUTO) 5.5 % (2.0-12.0); NEUTROPHILS # (AUTO) 7.4 /CMM (1.8-8.9); NEUTROPHILS % (AUTO) 76.8 % (43.0-81.0); RED BLOOD CELL COUNT(AUTO) 3.02 MIL/uL (4.0-5.2); WHITE BLOOD COUNT (AUTO) 9.6 K/uL (4.3-11.0)
[2020-08-16 07:00] LABS: PLATELET COUNT (AUTO) 40 /CMM (150-450)
[2020-08-16] MEDS: DICYCLOMINE HCL 10 MG CAPSULE PO SCH ×4 (07:01→22:31)
--- NOTE | 2020-08-16 07:30 | NUR ---
RN OPENING NOTE PATIENT RECEIVED IN BED, SLEEPING. A/O X1. NO S/S OF DISTRESS AT THIS TIME. TELE READING SHOWS SINUS TACHY IN 100S. CURRENTLY ON OXYGEN THERAPY AT 6LPM WITH OXYGEN SATURATION 96%. HERMES MIDLINE INTACT AND PATENT, NO S/S OF INFECTION AT THIS TIME. PATIENT CURRENTLY NPO, AWAITING SPEECH EVALUATION. ALL SAFETY MEASURES IN PLACE PER HOSPITAL POLICY. BED LOCKED IN LOWEST POSITION, CALL LIGHT WITHIN REACH. WILL CONTINUE TO MONITOR AND PROVIDE CARE.
[2020-08-16 07:34] LABS: CHOLESTEROL 166 mg/dL (<200); LDL 129 mg/dL (0-99); TRIGLYCERIDES 212 mg/dL (30-150)
[2020-08-16 07:43] LABS: HDL CHOLESTEROL < 10 mg/dL (40-60)
[2020-08-16 07:45] LABS: LYMPHOCYTES % (MANUAL) 12 % (16-48); MONOCYTES % (MANUAL) 3 % (0-11.0); NEUTROPHILS % (MANUAL) 85 (42-76)
[2020-08-16 07:55] LABS: CALCIUM, SERUM 8.9 mg/dL (8.5-10.1); CARBON DIOXIDE 20 mmol/L (21-32); CHLORIDE 110 mmol/L (98-107); GLUCOSE 106 mg/dL (74-106); POTASSIUM 4.6 mmol/L (3.5-5.1); SODIUM SERUM 143 mmol/L (136-145); UREA NITROGEN, BLOOD 22 mg/dL (7-18)
[2020-08-16 08:00] VITALS: BP 90/58
[2020-08-16] MEDS: ENSURE ENLIVE CHOC 237 ML CAN PO SCH ×3 (08:00→17:04)
[2020-08-16] MEDS: APIXABAN 5 MG TABLET PO SCH (09:00)
[2020-08-16] MEDS: ASPIRIN 300 MG/SUPP.RECT RC SCH (09:00)
[2020-08-16] MEDS: MEGESTROL ACETATE SUSP 400 MG/10 ML UDC PO SCH (09:00)
[2020-08-16] MEDS: PROSTAT (PYXIS) 30 ML UDC PO SCH ×2 (09:00→11:51)
[2020-08-16] MEDS: MULTIVITAMINS,THERAGRAN 1 UDTAB TABLET PO SCH (09:00)
[2020-08-16] MEDS: ASCORBIC ACID 500 MG TABLET PO SCH (09:00)
[2020-08-16] MEDS: ZINC SULFATE 220 MG CAPSULE PO SCH (09:00)
[2020-08-16] MEDS: DRONABINOL (2.5 MG) 2.5 MG CAPSULE PO SCH ×2 (09:00→16:57)
[2020-08-16] MEDS: MORPHINE SULFATE SR 15 MG TABLET.SA PO SCH ×2 (09:00→21:00)
--- NOTE | 2020-08-16 09:00 | NUR ---
RN NOTES PT IS REFUSING HER MEDS
[2020-08-16] MEDS: DAKINS QUARTER STRENGTH (0.125%) 480 ML BOTTLE TOP SCH (09:11)
[2020-08-16] MEDS: Z GUARD REMEDY 2 OZ OINT TP SCH (09:11)
[2020-08-16] MEDS: FAMOTIDINE/PF INJ 20 MG/2 ML VIAL IV SCH ×2 (09:14→21:45)
[2020-08-16 12:00] VITALS: BP 87/53
--- NOTE | 2020-08-16 12:00 | NUR ---
RN NOTES PT IS REFUSING EATING
--- NOTE | 2020-08-16 12:00 | NUR ---
RN NOTES PT BP IS VERY LOW INFORMED DR COLE ORDERED BOLUS OF 1 ML OF NS
--- NOTE | 2020-08-16 13:00 | NUR ---
RN NOTES RECHECKED BP IS WNL
[2020-08-16] MEDS ORDERED: IV NS 0.9% 1,000 ML IV ONE (13:30)
[2020-08-16 14:06] LABS: IRON, SERUM 52 ug/dl (50-175); TOTAL IRON BINDING CAPACITY 121 ug/dl (250-450)
[2020-08-16 14:40] LABS: FERRITIN 7069 ng/mL (8-388)
[2020-08-16] MEDS: DEXAMETHASONE SOD PHOSPHATE 10 MG/ML VIAL IV SCH (15:34)
[2020-08-16 16:00] VITALS: BP 96/53
--- NOTE | 2020-08-16 16:00 | NUR ---
RN NOTES PT IS REFUSING EATING
[2020-08-16] MEDS: POTASSIUM CHLORIDE 20 MEQ TAB.PRT.SR PO SCH (17:03)
--- NOTE | 2020-08-16 19:19 | NUR ---
RN CLOSING NOTE PATIENT IS IN BED SLEEPING. A/O X1. NO S/S OF DISTRESS OR SOB NOTED AT THIS TIME. TELE READING SHOWS SINUS TACHY IN 100S. CURRENTLY ON OXYGEN THERAPY AT 4LPM WITH OXYGEN SATURATION 96%. HERMES MIDLINE INTACT AND PATENT, NO S/S OF INFECTION OR INFILTRATION NOTED AT THIS TIME D5 IS RUNNING AT 100 ML/HR PATIENT IS ON PUREED DIET . ALL SAFETY MEASURES IN PLACE PER HOSPITAL POLICY. BED LOCKED IN LOWEST POSITION, CALL LIGHT WITHIN REACH. WILL ENDORSE TO PM NURSE FOR ALICJA
[2020-08-16 20:00] VITALS: BP 91/58
--- NOTE | 2020-08-16 20:00 | NUR ---
RN NOTE RECEIVED PT IN BED RESTING. PT OPENS EYES TO TOUCH. ON 4 L NC SATING 98%. PT HAS UNLABORED BREATHING. SAFETY MEASURE IN PLACE.
--- NOTE | 2020-08-16 21:52 | NUR ---
MORPHINE SULFATE NOT GIVEN BECAUSE PT BP IS 91/58, AND PT IS SLEEPING, THERE IS NO SIGN OF DISTRESS OR PAIN.
[2020-08-16] MEDS: SENNOSIDES 8.6 MG TABLET PO SCH (22:30)
[2020-08-17] VITALS: BP 100/59
[2020-08-17 04:00] VITALS: BP 114/55
[2020-08-17] MEDS: IV D5W 1,000 ML IV PRN (06:15)
[2020-08-17 06:40] LABS: BASOPHILS % (AUTO) 0.2 % (0.0-2.0); HEMATOCRIT 32 % (33-45); HEMOGLOBIN 10.4 g/dL (11.5-14.8); LYMPHOCYTES # (AUTO) 1.1 /CMM (0.8-4.8); LYMPHOCYTES % (AUTO) 11.5 % (20.0-44.0); MEAN CORPUSCULAR HGB CONC 32 g/dl (31.0-36.0); MEAN CORPUSCULAR VOLUME 100 fL (82-100); MONOCYTES # (AUTO) 0.2 /CMM (0.1-1.30); MONOCYTES % (AUTO) 2.7 % (2.0-12.0); NEUTROPHILS # (AUTO) 7.9 /CMM (1.8-8.9); NEUTROPHILS % (AUTO) 85.6 % (43.0-81.0); WHITE BLOOD COUNT (AUTO) 9.3 K/uL (4.3-11.0)
[2020-08-17 06:53] LABS: CALCIUM, SERUM 8.7 mg/dL (8.5-10.1); CREATININE 1.1 mg/dL (0.6-1.3); MAGNESIUM 2.7 mg/dL (1.8-2.4); PHOSPHORUS 3.3 mg/dL (2.5-4.9)
[2020-08-17 07:24] LABS: D-DIMER 27.82 mg/L(FEU (0.17-0.50)
--- NOTE | 2020-08-17 07:29 | NUR ---
RN NOTE PT REMAINED STABLE DURING MY SHIFT, NO ACUTE CHANGES, SHIFT REPORT GIVEN TO INCOMING SHIFT FOR ALICJA.
[2020-08-17 07:31] LABS: PLATELET COUNT (AUTO) 40 /CMM (150-450)
[2020-08-17 07:34] LABS: LYMPHOCYTES % (MANUAL) 11 % (16-48); MONOCYTES % (MANUAL) 3 % (0-11.0); NEUTROPHILS % (MANUAL) 86 (42-76)
[2020-08-17] MEDS: ENSURE ENLIVE CHOC 237 ML CAN PO SCH ×3 (07:40→16:57)
--- NOTE | 2020-08-17 07:55 | NUR ---
RN NOTES PATIENT IS IN BED SLEEPING INTERMEDIATELY. A/O X1. NO S/S OF DISTRESS OR SOB NOTED AT THIS TIME. TELE READING SHOWS SINUS TACHY IN 100S. CURRENTLY ON OXYGEN THERAPY AT 4LPM WITH OXYGEN SATURATION 96%. HERMES MIDLINE INTACT AND PATENT, NO S/S OF INFECTION OR INFILTRATION NOTED AT THIS TIME D5 IS RUNNING AT 100 ML/HR PATIENT IS ON PUREED DIET PT IS REFUSING ALL HER MEDS AND FOOD AT THIS TIME. ALL SAFETY MEASURES IN PLACE PER HOSPITAL POLICY. BED LOCKED AND IN THE LOWEST POSITION. VISUAL MERCHANDISING ASSISTANT RAILS ARE UP X2. CALL LIGHT WITHIN REACH. WILL CONTINUE TO MONITOR
[2020-08-17 08:00] VITALS: BP 92/60
[2020-08-17] MEDS: FAMOTIDINE/PF INJ 20 MG/2 ML VIAL IV SCH ×2 (08:47→21:47)
[2020-08-17] MEDS: DEXAMETHASONE SOD PHOSPHATE 10 MG/ML VIAL IV SCH (08:47)
[2020-08-17] MEDS: MULTIVITAMINS,THERAGRAN 1 UDTAB TABLET PO SCH ×2 (08:47→09:00)
[2020-08-17] MEDS: ZINC SULFATE 220 MG CAPSULE PO SCH ×2 (08:48→09:00)
[2020-08-17] MEDS: MORPHINE SULFATE SR 15 MG TABLET.SA PO SCH ×2 (08:48→21:00)
[2020-08-17] MEDS: DAKINS QUARTER STRENGTH (0.125%) 480 ML BOTTLE TOP SCH (08:50)
[2020-08-17] MEDS: PROSTAT (PYXIS) 30 ML UDC PO SCH (08:51)
[2020-08-17] MEDS: Z GUARD REMEDY 2 OZ OINT TP SCH (08:51)
[2020-08-17] MEDS: ASCORBIC ACID 500 MG TABLET PO SCH ×2 (08:56→09:00)
[2020-08-17] MEDS: DRONABINOL (2.5 MG) 2.5 MG CAPSULE PO SCH ×2 (08:56→16:57)
[2020-08-17] MEDS: DICYCLOMINE HCL 10 MG CAPSULE PO SCH ×4 (08:57→21:57)
[2020-08-17] MEDS ORDERED: ASPIRIN EC 81 MG TABLET.DR PO SCH (09:00)
[2020-08-17 11:19] LABS: ALBUMIN 1.7 g/dL (3.4-5.0); BILIRUBIN,DIRECT 8.4 mg/dL (0.0-0.2); BILIRUBIN,TOTAL 9.3 mg/dL (0.2-1.0); TOTAL PROTEIN, SERUM 5.8 g/dL (6.4-8.2)
[2020-08-17 12:00] VITALS: BP 87/57
--- NOTE | 2020-08-17 12:00 | NUR ---
RN NOTES PT BLOOD PRESSURE FLUCTUATES DURING THE SHIFT DUE TO REFUSING EATING AND MEDS. TALKED TO HER BOTH DAUGHTERS ARE AWARE.
--- NOTE | 2020-08-17 13:00 | NUR ---
RN NOTES FAXED MANY TIMES TO [facility] IN [place] FOR MEDICAL RECORD RELEASE GO THE PHONE AND FAX FROM [facility]
[2020-08-17 16:00] VITALS: BP 88/58
[2020-08-17 17:08] LABS: *ANA ANTI-CENTROMERE B AB <0.2 AI (0.0-0.9); *ANA ANTI-DNA(DS) AB, QN <1 IU/mL (0-9); *ANA ANTI-JO-1 <0.2 AI (0.0-0.9); *ANA ANTICHROMATIN ANTIBODY <0.2 AI (0.0-0.9); *ANA RNP ANTIBODIES 1.5 AI (0.0-0.9); *ANA SJOGREN'S ANTI-SS-A <0.2 AI (0.0-0.9); *ANA SJOGREN'S ANTI-SS-B <0.2 AI (0.0-0.9); *ANAANTI-SCLERODERMA-70 AB <0.2 AI (0.0-0.9); *ANASMITH AB <0.2 AI (0.0-0.9)
[2020-08-17] MEDS: POTASSIUM CHLORIDE 20 MEQ TAB.PRT.SR PO SCH (17:15)
--- NOTE | 2020-08-17 19:10 | NUR ---
RN CLOSING NOTES PATIENT IS IN BED RESTING AND SLEEPING INTERMEDIATELY. A/O X1. NO S/S OF DISTRESS OR SOB NOTED AT THIS TIME. TELE READING SHOWS SINUS TACHY IN 100S. CURRENTLY ON OXYGEN THERAPY AT 4LPM WITH OXYGEN SATURATION 96%. HERMES MIDLINE INTACT AND PATENT, NO S/S OF INFECTION OR INFILTRATION NOTED AT THIS TIME D5 IS RUNNING AT 100 ML/HR PATIENT IS ON PUREED DIET BUT PT IS REFUSING TO EAT OR TO TAKE ALL HER MEDS . ALL SAFETY MEASURES IN PLACE PER HOSPITAL POLICY. BED LOCKED AND IN THE LOWEST POSITION. STAMP COLLECTOR RAILS ARE UP X2. CALL LIGHT WITHIN REACH. WILL ENDORSE TO PM NURSE FOR CONTINUE OF CARE
--- NOTE | 2020-08-17 19:57 | NUR ---
OLIVE GRADER NOTES PATIENT IN BED, OPENS EYES AND MUMBLES WORDS. ALERT AND ORIENTED X 1. BREATHING EVEN AND UNLABORED ON 4L NC. SHOWS NO SIGNS OF ACUTE RESPIRATORY DISTRESS, NO ACUTE PAIN. TELE MONITOR ST/SR. IV ON HERMES MIDLINE RUNNING D5NS AT 50ML/HR. ITS CLEAN DRY AND INTACT. SHOWS NO SIGNS OF INFILTRATION, NO REDNESS. R PORT A CATH INTACT. SAFETY PRECAUTIONS IN PLACE. BED IN LOWEST POSITION, LOCKED, AND CALL LIGHT KEPT WITHIN REACH. WILL CONTINUE TO MONITOR.
[2020-08-17 20:00] VITALS: BP 123/73
[2020-08-17] MEDS: IV D5/ 0.9% NACL 1,000 ML IV PRN (21:48)
[2020-08-17] MEDS: SENNOSIDES 8.6 MG TABLET PO SCH (21:57)
--- NOTE | 2020-08-17 22:00 | NUR ---
SPECIMEN ACCESSIONER NOTES PATIENT REFUSED TO TAKE ANY PO MEDICATION. EDUCATED ON RISK AND BENEFITS ON MEDICATIONS. WILL CONTINUE TO MONITOR.
[2020-08-18] VITALS (32 sets, daily range): BP systolic 40–166; BP diastolic 17–119
--- NOTE | 2020-08-18 06:33 | NUR ---
MANAGER BANK NOTES PATIENT IN BED, OPENS EYES AND MUMBLES WORDS. ALERT AND ORIENTED X 1. BREATHING EVEN AND UNLABORED ON NONREBREATHER 97-99% . PT KEPT DESATING ON 6L NC AT 87-88%. SHOWS NO SIGNS OF ACUTE RESPIRATORY DISTRESS, NO ACUTE PAIN. TELE MONITOR ST. IV ON HERMES MIDLINE RUNNING D5NS AT 50ML/HR. ITS CLEAN DRY AND INTACT. SHOWS NO SIGNS OF INFILTRATION, NO REDNESS. R PORT A CATH INTACT. ALL IV MEDICATION GIVEN. PT REFUSED PO MEDS. ALL NEEDS ATTENDED TO. SAFETY PRECAUTIONS IN PLACE. BED IN LOWEST POSITION, LOCKED, AND CALL LIGHT KEPT WITHIN REACH. WILL ENDORSE TO ONCOMING NURSE.
[2020-08-18] MEDS: DICYCLOMINE HCL 10 MG CAPSULE PO SCH ×5 (07:30→21:22)
--- NOTE | 2020-08-18 07:30 | NUR ---
RN OPENING NOTE PATIENT IN BED, A/Ox1, OPENS EYES AND MUMBLES WORDS INCOHERENTLY. PT IS NO NONREBREATHER AT 15LPM SPO2 93%, NO SIGNS OF SOB OR RESP DISTRESS. NO SIGNS ACUTE PAIN. TELE MONITOR ST. IV ON HERMES MIDLINE RUNNING D5NS AT 50ML/HR, NO SIGNS OF INFILTRATION, OR REDNESS. R PORT-A CATH INTACT. SAFETY PRECAUTIONS IN PLACE. BED IN LOWEST POSITION, LOCKED, AND CALL LIGHT KEPT WITHIN REACH. WILL CONTINUE TO MONITOR
[2020-08-18] MEDS: ENSURE ENLIVE CHOC 237 ML CAN PO SCH ×4 (08:00→17:00)
[2020-08-18] MEDS: MULTIVITAMINS,THERAGRAN 1 UDTAB TABLET PO SCH ×2 (09:00→09:55)
[2020-08-18] MEDS: MORPHINE SULFATE SR 15 MG TABLET.SA PO SCH ×2 (09:00→09:57)
[2020-08-18] MEDS: PROSTAT (PYXIS) 30 ML UDC PO SCH (09:00)
[2020-08-18] MEDS: DRONABINOL (2.5 MG) 2.5 MG CAPSULE PO SCH ×2 (09:00→09:58)
[2020-08-18] MEDS: Z GUARD REMEDY 2 OZ OINT TP SCH (09:00)
[2020-08-18] MEDS: ASCORBIC ACID 500 MG TABLET PO SCH ×2 (09:00→09:56)
[2020-08-18] MEDS: DAKINS QUARTER STRENGTH (0.125%) 480 ML BOTTLE TOP SCH (09:00)
--- NOTE | 2020-08-18 09:45 | NUR ---
RN NOTE ORDERED STAT ABG PER DR. KELLOGG
[2020-08-18] MEDS: DEXAMETHASONE SOD PHOSPHATE 10 MG/ML VIAL IV SCH (09:58)
[2020-08-18] MEDS: ZINC SULFATE 220 MG CAPSULE PO SCH (09:58)
[2020-08-18] MEDS: FAMOTIDINE/PF INJ 20 MG/2 ML VIAL IV SCH ×2 (09:58→20:30)
--- NOTE | 2020-08-18 10:51 | NUR ---
CHARGE NURSE NOTES DR. Anthony COLE NOTIFIED REGARDING PATIENT REFUSING ALL LAB DRAWS AND ABG DESPITE EXPLAINING THE NECESSITY.
--- NOTE | 2020-08-18 11:03 | NUR ---
RN NOTE CALLED RT REGARDING ABG STAT ORDERED. THEY SAID THEY WILL COME RIGHT DOWN
--- NOTE | 2020-08-18 12:10 | NUR ---
RN NOTE TRANSFERRED PT TO ICU. GAVE REPORT TO ANDREW FOR ALICJA
--- NOTE | 2020-08-18 12:13 | NUR ---
SPONGE PRESS OPERATOR NOTES RECEIVED CALL FROM CLAYTON PALMA ROOFING FOREMAN, PATIENT TO TRANSFER TO ICU [address] KELLOGG
--- NOTE | 2020-08-18 12:20 | NUR ---
RN NOTES RECEIVED PATIENT VIA HOSPITAL BED, REPORT GIVEN BEDSIDE BY BRIAN FREEDMAN. ON NON REBREATHER MASK 15L, SATING 94%, PATIENT ALERT, A/O X2, ABLE TO FOLLOW SIMPLE COMMANDS, SAFETY MEASURES IN PLACE, BED IN LOWEST LOCKED POSITION WITH SIDE RAILS UP, CALL LIGHT PLACED WITHIN EASY REACH. ISOLATION PRECAUTION MAINTAINED. WILL CONTINUE TO MONITOR.
--- NOTE | 2020-08-18 12:45 | NUR ---
PATIENT INTUBATED SUCCESSFULLY BY ANESTHESIOLOGIST DR. MENDIETA . INITIAL VENT SETTINGS GIVEN BY DR. KELLOGG.
[2020-08-18] MEDS ORDERED: CEFTRIAXONE 1 G in IV D5W 50 ML IV SCH (13:00)
[2020-08-18] MEDS ORDERED: AZITHROMYCIN 500 MG in IV D5W 250 ML IV SCH (13:00)
[2020-08-18] MEDS ORDERED: IV NS 0.9% 500 ML IV ONE (13:30)
--- NOTE | 2020-08-18 13:33 | NUR ---
RT INTUBATED 7.0 @23CM PLACED PT ON [facility] VENT AC 20 450 +0 100% POSITITVE COLOR CHANGE BILATERAL CHEST RISE, BAG AND MASK AT HOB VENT PLUG IN RED OUTLET WILL CONT TO MONITOR Addendum: 08/18/20 at 1334 by YESY LIN RT Amended: Links added.
--- NOTE | 2020-08-18 13:53 | NUR ---
ET-TUBE PULL OUT 3CM TO 20CM AT LIP. PER DR KELLOGG
[2020-08-18] MEDS: PROPOFOL 100 ML IV PRN ×2 (13:55→18:58)
[2020-08-18] MEDS: IV D5/ 0.9% NACL 1,000 ML IV PRN (13:56)
[2020-08-18] MEDS: NOREPINEPHRINE 8 MG in IV NS 0.9% 242 ML IV PRN ×2 (15:04→18:33)
[2020-08-18 15:42] LABS: ABG BASE EXCESS -13.1 mmol/L; ABG OXYGEN SATURATION 96.2 % (92.0-98.5); ABG PCO2 21.5 mmHg (35.0-45.0); ABG PH 7.324 (7.350-7.450); ABG PO2 93.2 mmHg (75.0-100.0); AaDO2 598.3 mmHg; COHb 0.3 % (0.5-1.5); MetHb 0.1 % (0.0-1.5); O2Hb 95.8 % (94.0-97.0); PEEP,BG 0 cm H2O; SITE, ABG Right Brachial; VT, ABG 450 mL
[2020-08-18 16:12] LABS: BASOPHILS % (AUTO) 0.2 % (0.0-2.0); HEMATOCRIT 36 % (33-45); HEMOGLOBIN 11.5 g/dL (11.5-14.8); LYMPHOCYTES # (AUTO) 2.3 /CMM (0.8-4.8); LYMPHOCYTES % (AUTO) 12.7 % (20.0-44.0); MEAN CORPUSCULAR HGB CONC 32 g/dl (31.0-36.0); MEAN CORPUSCULAR VOLUME 102 fL (82-100); MONOCYTES # (AUTO) 0.3 /CMM (0.1-1.30); MONOCYTES % (AUTO) 1.8 % (2.0-12.0); NEUTROPHILS # (AUTO) 15.1 /CMM (1.8-8.9); NEUTROPHILS % (AUTO) 85.3 % (43.0-81.0); RED BLOOD CELL COUNT(AUTO) 3.58 MIL/uL (4.0-5.2); WHITE BLOOD COUNT (AUTO) 17.7 K/uL (4.3-11.0)
[2020-08-18 16:22] LABS: CALCIUM, SERUM 7.9 mg/dL (8.5-10.1); CREATININE 1.3 mg/dL (0.6-1.3); PHOSPHORUS 4.4 mg/dL (2.5-4.9); POTASSIUM 4.4 mmol/L (3.5-5.1)
[2020-08-18 16:28] LABS: ALBUMIN 1.5 g/dL (3.4-5.0); BILIRUBIN,DIRECT 9.1 mg/dL (0.0-0.2); BILIRUBIN,TOTAL 10.4 mg/dL (0.2-1.0); TOTAL PROTEIN, SERUM 5.4 g/dL (6.4-8.2)
[2020-08-18] MEDS ORDERED: IV NS 0.9% 1,000 ML IV STA (16:29)
[2020-08-18] MEDS ORDERED: PHENYLEPHRINE 50 MG in IV NS 0.9% 245 ML IV PRN (16:30)
--- NOTE | 2020-08-18 17:00 | NUR ---
REPEAT CXR DONE TO CONFIRM ETT PLACEMENT PER RADIOLOGIST DR. COSTELLO POST ADJUSTMENT WITH CONFIRMED ETT PLACEMENT IN GOOD POSITION.
[2020-08-18 17:03] LABS: PLATELET COUNT (AUTO) 48 /CMM (150-450)
[2020-08-18 17:57] LABS: D-DIMER 26.58 mg/L(FEU (0.17-0.50)
[2020-08-18] MEDS: POTASSIUM CHLORIDE 20 MEQ TAB.PRT.SR PO SCH (18:00)
[2020-08-18 18:05] LABS: BAND % (MANUAL) 9 % (0.0-5.0); LYMPHOCYTES % (MANUAL) 10 % (16-48); MONOCYTES % (MANUAL) 1 % (0-11.0); NEUTROPHILS % (MANUAL) 80 (42-76)
--- NOTE | 2020-08-18 18:58 | NUR ---
RN NOTE WASTED MEDS (0671 AND 5212) NOT GIVEN INCLUDING MORPHINE TAB 15MG
[2020-08-18] MEDS ORDERED: CLINDAMYCIN IV RTU IN D5W 900 MG/50 ML PIGGYBACK IV SCH (19:00)
--- NOTE | 2020-08-18 19:00 | NUR ---
RN NOTES PATIENT IN BED SEDATED, HOB ELEVATED, ON A VENT TOLERATING WELL. NO SIGNS OF DISTRESS NOTED. TREVINO CATH, INTACT AND PATENT, WITH BILATERAL SOFT WRIST RESTRAINT, CIRCULATION CHECKED, SAFETY MEASURES IN PLACE, ENDORSE TO BRIAN BORGES FOR ALICJA.
--- NOTE | 2020-08-18 19:35 | NUR ---
ICER MACHINE: RECEIVED PT INTUBATED WT VENT SETTINGS ORDERED. SEDATED WT DIPRIVAN AT 50MCG/KG/MIN, DOES NOT WITHDRAW TO PAIN STIMULI. WILL DECREASE DOSE NEEDED. RESTRAINTS REMOVED AT THIS TIME. ON LEVOPHED 0.8 MCG/KG/MIN AND PHENYLEPHRINE AT 2MCG/KG/MIN FOR BP SUPPORT, D5NS AT 50ML/HR. HERMES PICC LINE DRESSING NOTED WT MODERATE BLEEDING. REINFORCED DRESSING. PT IS COOL TO TOUCH, UNABLE TO GET TEMPERATURE VIA ORAL OR AXILLA. UNABLE TO APPRECIATE ACCURATE [address]URATION[address] WARM BLANKETS APPLIED. ST WT HR IN THE LOW 100s ON TREAD BOOKER. NO URINE OUTPUT VIA TREVINO CATHETER. HOB AT 30 DEGREES. BED IN LOWEST POSITION AND LOCKED. SIDERAILS UP X2. WILL CONTINUE TO MONITOR. Addendum: 08/19/20 at 0231 by KATERINA ALAS RN CORRECTION: LEVOPHED AT 1 MCG/KG/MIN AND PHENYLEPHRINE AT 2.5MCG/KG/MIN.
--- NOTE | 2020-08-18 20:00 | NUR ---
GROUND HELPER STREET RAILWAY: CORE TEMP.= 93.1. MAGGY DELGADO APPLIED.
[2020-08-18] MEDS ORDERED: MEROPENEM 500 MG in IV NS 0.9% 50 ML IV SCH (21:00)
[2020-08-18] MEDS ORDERED: CLINDAMYCIN 900 MG in IV D5W 50 ML IV SCH (21:00)
[2020-08-18] MEDS ORDERED: NOREPINEPHRINE 8MG/250ML RTU 250 ML IV ONE (21:22)
--- NOTE | 2020-08-18 21:26 | NUR ---
COMMERCIAL OR INSTITUTIONAL CLEANER: CALLED DR. COLE AND MADE AWARE THAT LEVO AND DAVIE DRIPS ARE MAXXED OUT AND PT STILL NOTED HYPOTENSIVE. RT HAS DIFFICULTY DRAWING ABG AT THIS TIME. WT ORDER FOR VASOPRESSIN AND NS 1L BOLUS. NOTED AND CARRIED OUT.
[2020-08-18] MEDS ORDERED: VASOPRESSIN INJ 40 UNIT in IV NS 0.9% 38 ML IV PRN (21:30)
[2020-08-18] MEDS ORDERED: IV NS 0.9% 1,000 ML IV ONE (21:30)
[2020-08-18 21:46] LABS: ABG BASE EXCESS -27.9 mmol/L; ABG OXYGEN SATURATION 78.1 % (92.0-98.5); ABG PCO2 25.6 mmHg (35.0-45.0); ABG PH 6.867 (7.350-7.450); AaDO2 619.4 mmHg; COHb 0.1 % (0.5-1.5); MetHb 0.3 % (0.0-1.5); O2Hb 77.8 % (94.0-97.0); SITE, ABG Right Brachial; VT, ABG 450 mL
[2020-08-18] MEDS ORDERED: SODIUM BICARBONATE SYR 50 MEQ/50 ML DISP.SYRIN IV STA (21:50)
--- NOTE | 2020-08-18 21:56 | NUR ---
TARGETEER: NOTIFIED OF CRITICAL ABG RESULT WT NEW ORDERS.
--- NOTE | 2020-08-18 21:59 | NUR ---
PET RESORT CONCIERGE: PT NOTED PEA. CPR INITIATED. SEE CODE BLUE SHEET.
[2020-08-18] MEDS ORDERED: Sodium Bicarbonate 150 MEQ in IV D5W 1,000 ML IV PRN (22:00)
--- NOTE | 2020-08-18 22:07 | NUR ---
VENEER PRODUCTION MACHINE OPERATOR: RETURNED ROSC. DAUGHTERS NEIL AND SAW NOTIFIED.
[2020-08-18] MEDS ORDERED: SODIUM BICARBONATE SYR 50 MEQ/50 ML DISP.SYRIN ONE ×3 (22:30→23:00)
[2020-08-18] MEDS ORDERED: NALOXONE HCL 0.4 MG/ML AMPUL ONE (23:00)
[2020-08-18] MEDS ORDERED: EPINEPHRINE (1:10,000) SYRINGE 1 MG/10 ML DISP.SYRIN ONE (23:00)
[2020-08-18] MEDS ORDERED: CALCIUM CHLORIDE 1,000 MG/10 ML DISP.SYRIN ONE (23:00)
--- NOTE | 2020-08-18 23:05 | NUR ---
WELDER FITTER: DAUGHTER NEIL OUTSIDE PT. ROOM. MADE AWARE OF CURRENT POOR PROGNOSIS. CHARGE NURSE ED TALKED TO OTHER DAUGHTER SAW ON THE PHONE. FAMILY DECIDED TO PLACE PT ON COMFORT MEASURES. MD NOTIFIED AND AGREED.
[2020-08-18] MEDS ORDERED: LORAZEPAM INJ 2 MG/ML VIAL IV PRN (23:30)
[2020-08-18] MEDS ORDERED: MORPHINE SULFATE INJ 4 MG/ML DISP.SYRIN IV PRN (23:30)
--- NOTE | 2020-08-18 23:35 | NUR ---
HOME AND SCHOOL VISITOR: TERMINAL EXTUBATION PERFORMED BY RT. PRIMARY RN ADMINISTERED MORPHINE AND ATIVAN ORDERED. PLACED ON 4L 02 VIA NC. COMFORT MEASURES PROVIDED.
--- NOTE | 2020-08-18 23:39 | NUR ---
CURLING MACHINE OPERATOR: PT. AND PRONOUNCED BY CHARGE NURSE ED. UNABLE TO APPRECIATE BP AND PULSE. NO RISING AND FALLING OF CHEST. PUPILS FIXED AND DILATED. FAMILY MADE AWARE OUTSIDE PT ROOM. POST MORTEM RENDERED.
--- NOTE | 2020-08-19 00:10 | NUR ---
WINDLASSER: KATIANA HANSEN FROM ADMITTING AND DEBRA STEPHENS (PARTY SUPPLY SPECIALIST) MADE AWARE. CALLED [facility] AND SPOKE TO PERLITA WT CASE NO. [id number] AND SAID PT IS INELIGIBLE FOR TISSUE AND ORGAN DONATION.
--- NOTE | 2020-08-19 00:12 | NUR ---
MELTING OPERATOR: BODY RELEASED TO [facility] ACCOMPANIED BY CILNICAL SCIENTIST WT BELONGINGS. DAUGHTER SAW UPDATED VIA PHONE CALL.
== END 2020-08-18 23:39 | disposition expired | DRG 720 ==
LOC: ER 12:09 → TELE1 16:39 → ICU 08-18 12:13
PROVIDERS: ADMIT Internal Medicine Nephrology; ATTEND Internal Medicine Nephrology
PROC: 5A2204Z Restoration of Cardiac Rhythm, Single (ICD-10-PCS; 2020-08-11)
PROC: 05HB33Z Insertion of Infusion Device into Right Basilic Vein, Percutaneous Approach (ICD-10-PCS; 2020-08-13)
PROC: 5A1935Z Respiratory Ventilation, Less than 24 Consecutive Hours (ICD-10-PCS; principal; 2020-08-18)
PROC: 0BH17EZ Insertion of Endotracheal Airway into Trachea, Via Natural or Artificial Opening (ICD-10-PCS; 2020-08-18)
PROC: 02HV33Z Insertion of Infusion Device into Superior Vena Cava, Percutaneous Approach (ICD-10-PCS; 2020-08-18)
PROC: B548ZZA Ultrasonography of Superior Vena Cava, Guidance (ICD-10-PCS; 2020-08-18)
DX: A41.89 Other specified sepsis (principal); U07.1 COVID-19; Z79.01 Long term (current) use of anticoagulants; J12.89 Other viral pneumonia; E87.6 Hypokalemia; E86.0 Dehydration; Z85.07 Personal history of malignant neoplasm of pancreas; E87.0 Hyperosmolality and hypernatremia; L89.154 Pressure ulcer of sacral region, stage 4; C25.9 Malignant neoplasm of pancreas, unspecified; K21.9 Gastro-esophageal reflux disease without esophagitis; R62.7 Adult failure to thrive; F32.9 Major depressive disorder, single episode, unspecified; M62.50 Muscle wasting and atrophy, not elsewhere classified, unspecified site; Z79.899 Other long term (current) drug therapy; G92 Toxic encephalopathy; E86.9 Volume depletion, unspecified; K72.90 Hepatic failure, unspecified without coma; D61.818 Other pancytopenia; D68.9 Coagulation defect, unspecified; E87.1 Hypo-osmolality and hyponatremia; E83.52 Hypercalcemia; J90 Pleural effusion, not elsewhere classified; J98.11 Atelectasis; R13.10 Dysphagia, unspecified; I21.4 Non-ST elevation (NSTEMI) myocardial infarction; C78.7 Secondary malignant neoplasm of liver and intrahepatic bile duct; C78.6 Secondary malignant neoplasm of retroperitoneum and peritoneum; I63.40 Cerebral infarction due to embolism of unspecified cerebral artery; N39.0 Urinary tract infection, site not specified; R63.0 Anorexia; Z68.20 Body mass index [BMI] 20.0-20.9, adult; D64.9 Anemia, unspecified; D65 Disseminated intravascular coagulation [defibrination syndrome]; E80.6 Other disorders of bilirubin metabolism; R09.02 Hypoxemia
CPT/HCPCS: 31720; 36410; 36415; 36600; 70450-TC; 70553-TC; 71045-TC; 80048-TC; 80061-TC; 80074; 80076-TC; 81001; 82140-TC; 82533; 82728-TC; 82962-TC; 83540-TC; 83605-TC; 83735-TC; 83970; 84100-TC; 84443-TC; 84484-TC; 85025-TC; 85378-TC; 85385-TC; 85396; 85610-TC; 85730-TC; 86225; 86235; 86431-TC; 86850-TC; 87040-TC; 87081-TC; 87086-TC; 92526; 92611-TC; 93307-TC; 94003-TC; 97530-TC; A6253; A6403; G0378; J0171; J0456; J0696; J1100; J2060; J2185; J2270; J2310; J2370; J3480; J3490; J7030; J7040; J7042; J7050; J7060; J7070; Q0167; U0003